=== PATIENT | female | born 1960 | race Caucasian/White ===

== ENCOUNTER 2025-11-03 19:57 | Emergency (ER) | payer BC, MEDICAID ==
[~2025-11-03] VITALS: Ht 160 cm; Wt 88.0 kg
[2025-11-03 20:10] VITALS: BP 132/73; TEMP 98
[2025-11-03] MEDS ORDERED: KETOROLAC TROMETHAMINE 15 MG/ML VIAL ONE (20:33)
[2025-11-03] MEDS: KETOROLAC TROMETHAMINE 15 MG/ML VIAL IM ONE (20:39)
[2025-11-03] MEDS ORDERED: IBUP-1490 PO (21:02)
[2025-11-03] MEDS ORDERED: NAPR-1009 PO (21:20)
[2025-11-03 21:32] VITALS: O2SAT 95
== END 2025-11-03 21:34 | disposition home or self-care (01) ==
LOC: ER 20:07
DX: S93.401A Sprain of unspecified ligament of right ankle, initial encounter (principal); I11.9 Hypertensive heart disease without heart failure; E78.5 Hyperlipidemia, unspecified
CPT/HCPCS: 29515; 73564; 73610; 96372; 99284; J1885